=== PATIENT | female | born 1960 | race Caucasian/White ===

== ENCOUNTER 2017-08-21 13:40 | Emergency (ER) | payer MEDICAID | END 2017-08-21 19:07 | disposition home or self-care (01) | LOC: EDBD 13:40 → D.ER 13:40 | DX: J01.90 Acute sinusitis, unspecified (principal); I10 Essential (primary) hypertension; F17.200 Nicotine dependence, unspecified, uncomplicated ==

== ENCOUNTER 2017-09-01 09:39 | Emergency (ER) | payer MEDICAID ==
[~2017-09-01] VITALS: Ht 165.1 cm; Wt 76.8 kg
[2017-09-01 09:51] VITALS: Ht 165.1 cm; Wt 76.8 kg
[2017-09-01] MEDS ORDERED: ELAVIL10 MG PO (10:40)
[2017-09-01 11:30] VITALS: BP 161/86
== END 2017-09-01 11:30 | disposition home or self-care (01) ==
LOC: D.ER 09:39
DX: G43.909 Migraine, unspecified, not intractable, without status migrainosus (principal); R11.2 Nausea with vomiting, unspecified; I10 Essential (primary) hypertension; F17.200 Nicotine dependence, unspecified, uncomplicated

== ENCOUNTER 2018-01-06 11:08 | Emergency (ER) | payer MEDICAID ==
[~2018-01-06] VITALS: Ht 165.1 cm; Wt 77.3 kg
[~2018-01-06 11:08] MED LIST: ELAVIL10 MG PO
[2018-01-06 11:32] VITALS: Ht 165.1 cm; Wt 77.3 kg
[2018-01-06] MEDS ORDERED: LISINOPRIL5 MG PO (11:37)
[2018-01-06] MEDS ORDERED: LOPRESSOR25 MG PO (11:37)
[2018-01-06] MEDS ORDERED: MOBIC7.5 MG PO (11:38)
[2018-01-06 14:35] VITALS: BP 116/52
== END 2018-01-06 14:39 | disposition home or self-care (01) ==
LOC: D.ER 11:08
DX: K08.409 Partial loss of teeth, unspecified cause, unspecified class (principal); R51 Headache; I10 Essential (primary) hypertension; F17.200 Nicotine dependence, unspecified, uncomplicated

== ENCOUNTER 2018-04-13 07:12 | Emergency (ER) | payer MEDICAID ==
[~2018-04-13] VITALS: Ht 165.1 cm; Wt 81.8 kg
[~2018-04-13 07:12] MED LIST changes: +LISINOPRIL5 MG PO; +LOPRESSOR25 MG PO; +MOBIC7.5 MG PO
[2018-04-13 07:27] VITALS: Ht 165.1 cm; Wt 81.8 kg
[2018-04-13 09:19] VITALS: BP 144/87
== END 2018-04-13 09:20 | disposition home or self-care (01) ==
LOC: D.ER 07:12
DX: F07.81 Postconcussional syndrome (principal); G43.909 Migraine, unspecified, not intractable, without status migrainosus; R42 Dizziness and giddiness; I10 Essential (primary) hypertension; F17.200 Nicotine dependence, unspecified, uncomplicated

== ENCOUNTER 2018-07-12 14:58 | Emergency (ER) | payer MEDICAID ==
[~2018-07-12] VITALS: Ht 165.1 cm; Wt 86.4 kg
[2018-07-12 15:19] VITALS: Ht 165.1 cm; Wt 86.4 kg
[2018-07-12] MEDS ORDERED: NEURONTIN 300300 MG PO (15:21)
[2018-07-12 16:03] LABS: BASOPHILS 0.5 % (0-2); EOSINOPHILS 1.8 % (0-7); HEMATOCRIT 41.2 % (36.0-48.0); HEMOGLOBIN 14.1 g/dL (12-16); IMMATURE GRANULOCYTES 0.3 % (0-5); LYMPHOCYTES 41.2 % (15-50); MCH 31.2 pg (26.0-34.0); MCHC 34.2 g/dL (31.0-37.0); MCV 91.2 fL (80.0-100.0); MEAN PLATELET VOLUME 9.1 fL (7.4-10.4); MONOCYTES 8.2 % (2-11); PLATELET COUNT 180 10x3/uL (130-400); RBC 4.52 10x6/uL (4.00-5.40); RDW 13.3 % (11.5-14.5); WBC 6.6 10x3/uL (4.8-10.8)
[2018-07-12 16:09] LABS: APPEARANCE CLEAR (CLEAR); BILIRUBIN NEGATIVE (NEGATIVE); COLOR YELLOW (YELLOW); GLUCOSE NEGATIVE (NEGATIVE); KETONE NEGATIVE (NEGATIVE); NITRITE NEGATIVE (NEGATIVE); PROTEIN NEGATIVE (NEGATIVE); SPECIFIC GRAVITY 1.005 (1.005-1.020); UROBILINOGEN NORMAL (NORMAL)
[2018-07-12 16:20] LABS: ALBUMIN 3.5 g/dL (3.4-5.0); ANION GAP 9.3 mmol/L (8-16); BILIRUBIN - TOTAL 0.26 mg/dL (0.2-1.3); CALCIUM 8.7 mg/dL (8.5-10.1); CARBON DIOXIDE 29.6 mmol/L (21.0-32.0); CREATININE - SERUM 0.9 mg/dL (0.6-1.3); POTASSIUM - SERUM 3.9 mmol/L (3.5-5.1); PROTEIN - SERUM 7.6 g/dL (6.4-8.2)
[2018-07-12] MEDS ORDERED: OMEPRAZOLE40 MG PO (18:17)
[2018-07-12 18:25] VITALS: BP 142/88
== END 2018-07-12 18:26 | disposition home or self-care (01) ==
LOC: D.ER 14:58
PROVIDERS: Emergency Medicine
DX: R10.9 Unspecified abdominal pain (principal); K21.9 Gastro-esophageal reflux disease without esophagitis

== ENCOUNTER 2018-08-27 13:45 | Emergency (ER) | payer MEDICAID ==
[~2018-08-27] VITALS: Ht 165.1 cm; Wt 90.9 kg
[~2018-08-27 13:45] MED LIST changes: +NEURONTIN 300300 MG PO; +OMEPRAZOLE40 MG PO
[2018-08-27 13:50] VITALS: Ht 165.1 cm; Wt 90.9 kg
[2018-08-27] MEDS ORDERED: NAPROSYN500 MG PO (16:00)
[2018-08-27] MEDS ORDERED: CYCLOBENZAPRINE10 MG PO (16:00)
[2018-08-27 16:15] VITALS: BP 139/76
== END 2018-08-27 16:15 | disposition home or self-care (01) ==
LOC: D.ER 13:45
DX: S29.012A Strain of muscle and tendon of back wall of thorax, initial encounter (principal); X50.0XXA Overexertion from strenuous movement or load, initial encounter; Y93.89 Activity, other specified; Y92.89 Other specified places as the place of occurrence of the external cause; M62.838 Other muscle spasm

== ENCOUNTER 2018-11-09 14:54 | Emergency (ER) | payer MEDICAID ==
[~2018-11-09] VITALS: Ht 165.1 cm; Wt 89.5 kg
[~2018-11-09 14:54] MED LIST changes: +CYCLOBENZAPRINE10 MG PO; +NAPROSYN500 MG PO
[2018-11-09 15:04] VITALS: BP 137/76; Ht 165.1 cm; Wt 89.5 kg
[2018-11-09 15:34] LABS: BASOPHILS 0.4 % (0-2); EOSINOPHILS 1.1 % (0-7); HEMOGLOBIN 14.3 g/dL (12-16); IMMATURE GRANULOCYTES 0.3 % (0-5); LYMPHOCYTES 43.8 % (15-50); MCH 30.8 pg (26.0-34.0); MCHC 34.9 g/dL (31.0-37.0); MCV 88.2 fL (80.0-100.0); MONOCYTES 6.3 % (2-11); NEUTROPHILS 48.1 % (40-80); PLATELET COUNT 181 10x3/uL (130-400); RBC 4.65 10x6/uL (4.00-5.40); RDW 13.1 % (11.5-14.5); WBC 7.4 10x3/uL (4.8-10.8)
[2018-11-09 15:48] LABS: ALBUMIN 3.9 g/dL (3.4-5.0); ANION GAP 12.5 mmol/L (8-16); BILIRUBIN - TOTAL 0.53 mg/dL (0.2-1.3); CALCIUM 9.2 mg/dL (8.5-10.1); POTASSIUM - SERUM 3.5 mmol/L (3.5-5.1); PROTEIN - SERUM 7.9 g/dL (6.4-8.2)
== END 2018-11-09 18:56 | disposition left against medical advice (07) ==
LOC: D.ER 14:54
PROVIDERS: Family Medicine
DX: R25.2 Cramp and spasm (principal)

== ENCOUNTER 2019-03-21 11:22 | Emergency (ER) | payer MEDICAID ==
[~2019-03-21] VITALS: Ht 165.1 cm; Wt 93.6 kg
[2019-03-21 11:40] VITALS: BP 131/94; Ht 165.1 cm; Wt 93.6 kg
== END 2019-03-21 16:07 | disposition left against medical advice (07) ==
LOC: D.ER 11:22
DX: R51 Headache (principal)